=== PATIENT | female | born 1985 | race American Indian/Alaskan Native ===

== ENCOUNTER 2018-08-23 11:56 | Emergency (ER) | payer OTHER, MEDICAID ==
[2018-08-23] MEDS ORDERED: TDAP Vaccine 0.5 mL Syr IM ONE (12:13)
--- NOTE | 2018-08-23 12:34 | ED PDOC ---
Arrival/HPI - General Chief Complaint: Abnormal Skin Integrity Time Seen by Provider: 08/23/18 12:04 Historian: Patient - History of Present Illness Narrative History of Present Illness (Text): 08/23/18 12:27 A 32 year old female, with no significant past medical history, presents to the emergency department with a complaint of numbness to 3 digits of her left foot. The patient states that a microwave plate fell onto her mid-left foot and sustained a small laceration. The patient states that she became concerned with the numbness to her toes and wanted to get evaluated. She reports that she was able to ambulate into the emergency department. The patient denies fevers, chills, headache, dizziness, chest pain, shortness of breath, dyspnea on exertion, cough, abdominal pain, nausea, vomiting, diarrhea, back pain, neck p ain, urinary/bowel changes, or any other complaint. Time/Duration: Other (This Morning) Symptom Onset: Sudden Symptom Course: Unchanged Activities at Onset: Rest, Light Context: Home Past Medical History - Provider Review Nursing Documentation Reviewed: Yes - Psychiatric Hx Substance Use: No - Anesthesia Hx Anesthesia: No Hx Anesthesia Reactions: No Hx Malignant Hyperthermia: No Family/Social History - Physician Review Nursing Documentation Reviewed: Yes Family/Social History: No Known Family HX Smoking Status: Never Smoked Hx Alcohol Use: No Hx Substance Use: No Allergies/Home Meds Allergies/Adverse Reactions: Allergies No Known Allergies Allergy (Verified 08/23/18 12:08) Review of Systems - Physician Review All systems were reviewed & negative as marked: Yes - Review of Systems Constitutional: absent: Fevers ENT: absent: Sore Throat Respiratory: absent: SOB, Cough Cardiovascular: absent: Chest Pain, DALE Gastrointestinal: absent: Abdominal Pain, Stool Changes, Diarrhea, Nausea, Vomiting Genitourinary Female: absent: Urine Output Changes Musculoskeletal: absent: Back Pain, Neck Pain Neurological: Other (Numbness to 3 igits ). absent: Headache, Dizziness Physical Exam Vital Signs Reviewed: Yes Vital Signs Temp Pulse Resp BP Pulse Ox 08/23/18 11:57 98.5 F 88 16 131/79 98 Temperature: Afebrile Blood Pressure: Normal Pulse: Regular Respiratory Rate: Normal Appearance: Positive for: Well-Appearing, Non-Toxic, Comfortable Pain Distress: None Mental Status: Positive for: Alert and Oriented X 3 - Systems Exam Lower Extremity: Present: NORMAL PULSES (Left foot: Pedal pulses intact), Neurovascularly Intact (Left foot: Sensation intact), Other (0.1 cm linear laceration to mid left foot.). No: Edema, Tenderness (Left foot no tenderness to palpation), Erythema Medical Decision Making ED Course and Treatment: 08/23/18 12:48 Impression: A 32 year old female presents to the emergency department with a complaint of numbness to 3 digits on her left foot. Plan: -- Boostrix Vaccine -- Dermabond -- Reassess and disposition Progress Notes: 08/23/18 12:49 Patient is in no acute distress. I have discussed the results and plan with the patient, who expresses understanding. Patient in agreement with plan to be discharged home. Patient is stable for discharge. Patient was instructed to follow up with physician or return if symptoms worsen or new concerning symptoms arise. - Medication Orders Current Medication Orders: Discontinued Medications Tetanus/Reduced Diphtheria/Acell Pertussis (Boostrix Vaccine Inj) 0.5 ml IM .ONCE ONE Stop: 08/23/18 12:14 - Scribe Statement The provider has reviewed the documentation as recorded by the Scribe Gavi Bustos Provider Scribe Attestation: All medical record entries made by the Scribe were at my direction and personally dictated by me. I have reviewed the chart and agree that the record accurately reflects my personal performance of the history, physical exam, medical decision making, and the department course for this patient. I have also personally directed, reviewed, and agree with the discharge instructions and disposition. Disposition/Present on Arrival - Present on Arrival History of DVT/PE: No History of Uncontrolled Diabetes: No Urinary Catheter: No History of Decub. Ulcer: No History Surgical Site Infection Following: None - Disposition Diagnosis: Foot abrasion Patient Problems: Current Active Problems Problem Status Onset Foot abrasion Acute Discharge Instructions (ExitCare): Skin Abrasions (DC) Print Language: [place] CITIZ[place] Additional Instructions: All medical record entries made by the Scribe were at my direction and personally dictated by me. I have reviewed the chart and agree that the record accurately reflects my personal performance of the history, physical exam, medical decision making, and the department course for this patient. I have also personally directed, reviewed, and agree with the discharge instructions and disposition. Please avoid moisture from contacting the affected foot for 12 hours [address]errals: [facility] at [facility] [place] [Outside] - Follow up with primary Zara Arreola MD [Medical Doctor] - Follow up with primary Forms: [employer] (Polish)
[2018-08-23 12:44] VITALS: BP 131/79; PULSE 88; RESP 16; TEMP 98.5; O2SAT 98
== END 2018-08-23 13:03 | disposition home or self-care (01) ==
LOC: ED 11:56
DX: S90.812A Abrasion, left foot, initial encounter (principal); W22.8XXA Striking against or struck by other objects, initial encounter; Y92.9 Unspecified place or not applicable; Z23 Encounter for immunization